=== PATIENT | male | born 1960 | race Two or more races ===

== ENCOUNTER 2024-04-20 16:53 | Emergency (ER) | payer OTHER ==
[~2024-04-20] VITALS: Ht 175.3 cm; Wt 88.5 kg
[2024-04-20] MEDS ORDERED: ISOSORBIDE MONO60 MG PO (17:03)
[2024-04-20] MEDS ORDERED: CARVEDILOL12.5 MG (17:04)
[2024-04-20 17:50] LABS: HEMATOCRIT 36.8 % (39.0-48.0); HEMOGLOBIN 12.4 g/dL (13-16.00); MEAN CELL VOLUME 90.8 fL (80.0-100.00); MEAN CORPUSCULAR HEMOGLOBIN 30.5 pg (27.00-32.0); MEAN CORPUSCULAR HGB CONC 33.7 g/dl (32.0-36.0); PLATELET COUNT 216 K/uL (150-450); RED BLOOD COUNT 4.05 M/uL (4.00-6.00)
[2024-04-20 18:18] LABS: URINE APPEARANCE Clear; URINE BILIRRUBIN Negative (NEGATIVE); URINE BLOOD Negative; URINE COLOR Yellow; URINE GLUCOSE Negative (NEGATIVE); URINE KETONE Negative (NEGATIVE); URINE LEUKOCYTE Negative; URINE NITRATE Negative; URINE PROTEIN Trace (NEGATIVE); URINE UROBILINOGEN 0.2 E.U./dl
[2024-04-20 18:21] LABS: INR 1.06; PARTIAL THROMBOPLASTIN TIME 21.1 SECONDS (22.0-34.0); PROTHROMBIN TIME 11.5 SECONDS (9.0-11.5)
[2024-04-20 18:22] LABS: URINE CAST 6.71 uL (0.0-1.40); URINE EPITHELIAL CELLS 2.9 uL (0.0-38.8); URINE RBC 16.4 uL (0.0-20.8); URINE WBC 6.6 uL (0.0-23.2)
[2024-04-20 18:25] LABS: ALBUMIN 3.8 gm/dL (3.4-5.0); BILIRUBIN TOTAL 0.52 mg/dL (0.3-1.2); CALCIUM 9.3 mg/dL (8.5-10.1); CREATININE SERUM 1.19 mg/dL (0.70-1.30); GFR 61.54; GLOBULINA 3.1 G/DL (2.4-3.5); POTASSIUM 5.15 mEq/L (3.5-5.1); TOTAL PROTEIN 6.9 gm/dL (6.4-8.2)
[2024-04-20 18:25] LABS: ABG PH 7.451 (7.35-7.45); ABG PO2 89.1 mmHg (80-100); ABG pCO2 37.4 mmHg (35-45); BASE EXCESS 1.7 mmol/l; BICARBONATE 25.4 mmol/l (23-25); SaO2 97.3 %; Tco2 26.6 mmol/l
[2024-04-20 18:31] LABS: allen test SATISFACTORY; o2 21 %; puncture site RADIAL LEFT
[2024-04-20 19:16] LABS: URINE BACTERIA 3.7 uL (0.0-1933)
== END 2024-04-20 19:46 | disposition home or self-care (01) ==
LOC: ER 16:53
PROVIDERS: General Practice
DX: E16.1 Other hypoglycemia (principal); I10 Essential (primary) hypertension; Z20.822 Contact with and (suspected) exposure to COVID-19